=== PATIENT | male | born 1965 | race Hispanic/Latino ===

== ENCOUNTER 2016-04-04 08:11 | Emergency (ER) | payer BC ==
[2016-04-04 08:21] VITALS: BP 149/92
[2016-04-04] MEDS ORDERED: DIPHTH,PERTUSS(ACELL),TET VAC 0.5 ML VIAL IM ONE ×2 (08:47→08:51)
--- NOTE | 2016-04-04 08:49 | ERNOTE ---
Medical Problem HPI - Narrative Date of Service: 04/04/16 - General Chief Complaint: Laceration Time Seen by Provider: 04/04/16 08:43 Source: patient - Immun/Allergies/Home Medications Immunizations: IMMUNIZATION HX Immunizations Up to Date Yes History of Influenza Vaccine No Hx Pneumococcal Vaccination No Allergies/Adverse Reactions: Allergies No Known Allergies Allergy (Verified 04/04/16 08:20) Home Medications: HOME MEDICATIONS NK [No Home Medication] 03/13/16 [Last Taken Unknown] - History of Present History Narrative: Pt incurred a superficial finger laceration on a knife at home. Timing: constant Severity: mild Review of Systems - Review of Systems Constitutional: Present: See HPI EYE: Present: no symptoms reported ENT: Present: no symptoms reported Respiratory: Present: no symptoms reported Cardiology: Present: no symptoms reported Gastrointestinal/Abdominal: Present: no symptoms reported Genitourinary: Present: no symptoms reported Musculoskeletal: Present: See HPI Skin: Present: no symptoms reported Neurological: Present: no symptoms reported Endocrine: Present: no symptoms reported Hematologic/Lymphatic: Present: no symptoms reported Psych: Present: no symptoms reported - Patient's Past Medical History Patient History - Medical: No pertinent hx Patient History - Cardiac/Respiratory: Hypertension Patient History - Cancer: No Hx of Cancer Patient History - Surgical Procedures: Other - Family History Mother Family History - Cardiac/Respiratory: Hypertension Father Family History - Medical: History Unknown Family History - Cardiac/Respiratory: History Unknown - Social History Living Situations: home Smoking Status: Never smoker Have you smoked in the past 12 months: No Alcohol Use: none Drug Use: none Physical Exam - Physical Exam General Appearance: Present: wd/wn, alert, no apparent distress Eye Exam: Normal inspection: bilateral, PERRL: bilateral Ears, Nose, Throat: Present: normal ENT inspection, hearing grossly normal, normal pharynx Neck: Present: normal inspection, nontender Respiratory: Present: no respiratory distress, normal breath sounds, no accessory muscle use, chest nontender, lungs clear Cardiovascular/Chest: Present: regular rate, rhythm, no murmur, normal peripheral pulses Gastrointestinal/Abdominal: Present: normal bowel sounds, nontender, nondistended, soft, no organomegaly Rectal Exam: Present: deferred Back Exam: Present: normal inspection, normal range of motion Extremity Exam: Present: non-tender, no edema, normal range of motion, other - 1 cm superficial index finger laceration on the left hand Neurological Exam: Present: alert, oriented, normal mood/affect Skin Exam: Present: normal color, warm/dry Lymphatic Exam: Present: no adenopathy ED Progress - Vital Signs Patient's Vital Signs:: I have reviewed the patient's vital signs. Vital Signs: Vital Signs 04/04/16 08:18 Temperature 36.8 C Pulse Rate 95 Respiratory 12 Rate Blood Pressure 149/92 O2 Sat by Pulse 96 Oximetry - Progress/Reassessment Chief Complaint: Laceration Progress:: Improved - Transfer of Care Expected Disposition: Discharge Procedures Left Finger 2nd Digit Wound's Depth/Shape: superficial Wound Explored: clean Wound Intervention: irrigated w/saline Distal NVT: neuro/vasc intact Wound Repaired With: Dermabond Wound Dressing: sterile dressing applied, splint applied Complications: Pt jacquelyn procedure well Departure - Departure Clinical Impression: Finger laceration Disposition: Home self-care Condition: Good Instructions: Laceration Care, Adult, [id number] Referrals: Edgar Ramirez MD [Primary Care Provider] -
== END 2016-04-04 09:10 | disposition home or self-care (01) ==
LOC: ER 08:11
PROC: 0HQGXZZ Repair Left Hand Skin, External Approach (ICD-10-PCS; principal; 2016-04-04)
DX: S61.211A Laceration without foreign body of left index finger without damage to nail, initial encounter (principal); W26.0XXA Contact with knife, initial encounter; Y92.009 Unspecified place in unspecified non-institutional (private) residence as the place of occurrence of the external cause; Z23 Encounter for immunization

== ENCOUNTER 2016-06-10 13:43 | Emergency (ER) | payer BC ==
[2016-06-10 13:59] VITALS: BP 146/84
--- OUTSIDE RECORDS SUMMARY | 2016-06-10 14:12 | XMS REPORT | Continuity of Care Document ---
:1965 Author Organization [facility] ([facility]) Address [address] [place] [address] Phone [phone] Care Team Providers Name Role Phone Unavailable Primary Care Provider Unavailable Source Comments This disclosure is being made pursuant to the Care Everywhere program, applicable federal and state laws, and may not contain all informaitonavailable regarding this patient.[facility] ([facility]) Active Allergies and Adverse Reactions Not on File Current Medications Not on file Active Problems Not on file Social History Tobacco Use Types Packs/Day Years Used Date Never Assessed Plan of Care Health Maintenance Due Date Last Done Comments HCV Screening 1965 Hepatitis B Vaccine (1 of 3 - Primary Series) 1965 Tdap Vaccine 1975 Lipid Disorder Screening 1982 MMR Vaccine 1982 Td Vaccine 1982 Colonoscopy 2014 Prostate Cancer Screening 2014 Influenza Vaccine: Seasonal (#1) 10/25/2015 Results from Last 3 Months Not on file
--- NOTE | 2016-06-10 14:59 | ERNOTE ---
Integumentary HPI - Narrative Date of Service: 06/10/16 - General Presenting Symptoms: rash Time Seen by Provider: 06/10/16 13:55 Source: patient Exam Limitations: no limitations - Immun/Allergies/Home Medications Immunizations: IMMUNIZATION HX Immunizations Up to Date Yes History of Influenza Vaccine No Hx Pneumococcal Vaccination No Allergies/Adverse Reactions: Allergies Allergy/AdvReac Type Severity Reaction Status Date / Time No Known Allergies Allergy Verified 06/10/16 13:59 Home Medications: HOME MEDICATIONS Cetirizine HCl [Zyrtec] 10 mg PO DAILY #30 cap 06/10/16 [Last Taken Unknown] diphenhydrAMINE HCL [Benadryl] 50 mg PO HS #30 capsule 06/10/16 [Last Taken Unknown] - Pain Pain Score: 0 - History of Present Illness Narrative: 51 year old male who presents to ED via POV with complaints of bumps to head, right forearm, chest and right lateral chest wall area. Patient states bumps itch, denies pain or purulent drainage. States noticed them late last night. Denies fevers, chills or body aches. Denies pets in house or change in food or detergent. States no other family members are affected. Has not tried anything OTC for this or previous treatment Date (Duration): 06/09/16 Location: Reports: scalp, upper extremity, other - sternal chest area and right lateral chest wall Quality: Reports: itching. Denies: painful, burning Severity: mild Exposure: Reports: no cause identified Modifying Factors - (Improves): Reports: nothing Modifying Factors - (Worsens): Reports: other Associated Symptoms: Denies: blisters, rash, hives, petechiae, edema, fever, headache, nasal congestion, sore throat, malaise Review of Systems - Review of Systems Constitutional: Present: no symptoms reported. Absent: recent illness, fever, chills, diaphoresis, weakness, fatigue EYE: Absent: no symptoms reported, eye discharge ENT: Absent: ear pain, ear discharge, nose pain, nose congestion, nasal drainage , sore throat Respiratory: Absent: shortness of breath, cough Cardiology: Absent: chest pain Gastrointestinal/Abdominal: Absent: nausea, vomiting, diarrhea, abdominal pain Genitourinary: Present: no symptoms reported Musculoskeletal: Present: no symptoms reported Skin: Present: other - raised bumps without drainage Neurological: Present: no symptoms reported Endocrine: Present: no symptoms reported Hematologic/Lymphatic: Present: no symptoms reported Psych: Present: no symptoms reported - Patient's Past Medical History Patient History - Medical: No pertinent hx Patient History - Cardiac/Respiratory: No pertinent hx Patient History - Cancer: No Hx of Cancer Patient History - Surgical Procedures: Other Patient History - Other: None - Family History Mother Family History - Cardiac/Respiratory: Hypertension Father Family History - Medical: History Unknown Family History - Cardiac/Respiratory: History Unknown - Social History Living Situations: home Abuse History: No History of abuse Psych History: No pertinent hx Smoking Status: Never smoker Alcohol Use: none Drug Use: none - Immunizations Immunizations Up to Date: Yes Hx Pneumococcal Vaccination: No History of Influenza Vaccine: No Physical Exam - Physical Exam General Appearance: Present: wd/wn, alert, no apparent distress Eye Exam: Normal inspection: bilateral, PERRL: bilateral Ears, Nose, Throat: Present: normal ENT inspection, normal pharynx. Absent: nasal congestion, sinus pain/drainage, pharyngeal erythema, pharyngeal swelling , tonsillar exudate Neck: Present: normal inspection, nontender, full range of motion. Absent: lymphadenopathy (R), lymphadenopathy (L) Respiratory: Present: no respiratory distress, normal breath sounds, no accessory muscle use, chest nontender, lungs clear. Absent: crackles, rales, rhonchi, stridor, wheezing Cardiovascular/Chest: Present: regular rate, rhythm, no murmur, normal peripheral pulses Peripheral Pulses: N=norm/S=strong/W=weak/B=bound/A=absent: Radial (R): Normal, Radial (L): Normal Gastrointestinal/Abdominal: Present: normal bowel sounds, nontender, nondistended, soft, no organomegaly Rectal Exam: Present: deferred Male Genitals Exam: Present: deferred Back Exam: Present: normal inspection, normal range of motion, no CVA tenderness , no vertebral tenderness Extremity Exam: Present: normal inspection, non-tender, normal range of motion, no edema Neurological Exam: Present: alert, oriented, normal mood/affect, no motor/ sensory deficits Skin Exam: Present: normal color, warm/dry Lymphatic Exam: Present: no adenopathy ED Progress - Vital Signs Patient's Vital Signs:: I have reviewed the patient's vital signs. Vital Signs: Vital Signs 06/10/16 13:54 Temperature 37.0 C Pulse Rate 90 Respiratory 16 Rate Blood Pressure 146/84 O2 Sat by Pulse 95 Oximetry - Progress/Reassessment Chief Complaint: Rash Progress:: Re-examined Departure Clinical Impression: Dermatitis - Departure Disposition: Home Follow Up Needed Condition: Good Instructions: Contact Dermatitis Additional Instructions: Take Zyrtec as prescribed during day and Benadryl at night to help with itching. No alcohol, sedatives or narcotics with Benadryl. No driving or operating heavy machinery with Benadryl. Follow up with physician if symptoms do not improve Referrals: Edgar Ramirez MD [Primary Care Provider] - Prescriptions: Cetirizine HCl [Zyrtec] 10 mg PO DAILY #30 cap diphenhydrAMINE HCL [Benadryl] 50 mg PO HS #30 capsule
== END 2016-06-10 15:05 | disposition home or self-care (01) ==
LOC: ER 13:43
DX: L30.9 Dermatitis, unspecified (principal)

== ENCOUNTER 2017-02-19 23:57 | Emergency (ER) | payer BC ==
[2017-02-20] MEDS ORDERED: ONDANSETRON HCL/PF 2 MG/ML VIAL IV ONE (00:28)
[2017-02-20] MEDS ORDERED: NORMAL SALINE 1,000 ML IV ONE (00:28)
--- NOTE | 2017-02-20 00:34 | ERNOTE ---
Medical Problem HPI - General Chief Complaint: Flu Symptoms Time Seen by Provider: 02/20/17 00:22 Source: patient Exam Limitations: no limitations - Immun/Allergies/Home Medications Immunizations: IMMUNIZATION HX Immunizations Up to Date Yes History of Influenza Vaccine No Hx Pneumococcal Vaccination No Allergies/Adverse Reactions: Allergies No Known Allergies Allergy (Verified 06/10/16 13:59) Home Medications: HOME MEDICATIONS Cetirizine HCl [Zyrtec] 10 mg PO DAILY #30 cap 06/10/16 [Last Taken Unknown] diphenhydrAMINE HCL [Benadryl] 50 mg PO HS #30 capsule 06/10/16 [Last Taken Unknown] Ondansetron [Zofran Odt] 4 mg PO Q6H PRN #10 tab 02/20/17 [Last Taken Unknown] - History of Present History Narrative: N/V/D x 12 hours. Timing: getting worse Severity: moderate, severe Modifying Factors - (Worsens): Present: eating Review of Systems - Review of Systems Constitutional: Absent: recent illness EYE: Present: no symptoms reported ENT: Present: no symptoms reported Respiratory: Absent: shortness of breath Cardiology: Absent: chest pain Gastrointestinal/Abdominal: Present: See HPI, eating less, drinking less Genitourinary: Present: no symptoms reported Musculoskeletal: Present: muscle pain, muscle stiffness Skin: Absent: rash Neurological: Present: no symptoms reported Endocrine: Present: no symptoms reported Hematologic/Lymphatic: Present: no symptoms reported Psych: Present: no symptoms reported - Patient's Past Medical History Patient History - Medical: No pertinent hx Patient History - Cardiac/Respiratory: No pertinent hx Patient History - Cancer: No Hx of Cancer Patient History - Surgical Procedures: Other Patient History - Other: None - Family History Mother Family History - Cardiac/Respiratory: Hypertension Father Family History - Medical: History Unknown Family History - Cardiac/Respiratory: History Unknown - Social History Living Situations: other Abuse History: No History of abuse Psych History: No pertinent hx Smoking Status: Never smoker Have you smoked in the past 12 months: No Do you dip or chew tobacco: No Patient requests Smoking Cessation Consult: No Initiate information on Smoking Cessation: No Alcohol Use: none Drug Use: none - Immunizations Immunizations Up to Date: Yes Hx Pneumococcal Vaccination: No History of Influenza Vaccine: No Physical Exam - Physical Exam General Appearance: Present: wd/wn, alert, moderate distress, lethargic - generally weak Head Exam: Present: normal inspection, no evidence of injury Respiratory: Present: no respiratory distress, no accessory muscle use, lungs clear Cardiovascular/Chest: Present: no murmur, tachycardia Gastrointestinal/Abdominal: Present: abnormal bowel sounds - hyperactive. Absent: distended, guarding, rebound Back Exam: Present: normal inspection, normal range of motion Extremity Exam: Present: normal inspection, normal range of motion, no edema Neurological Exam: Present: alert, oriented, normal mood/affect, no motor/ sensory deficits Skin Exam: Present: normal color, warm/dry Lymphatic Exam: Present: no adenopathy ED Progress - Results and Orders Patient's Lab Results:: I have reviewed the patient's lab results. Results and Orders: Laboratory Tests 02/20/17 02/20/17 02/20/17 00:11 00:40 00:40 WBC 15.3 H Hgb 17.1 Hct 48.8 Plt Count 221 Neutrophils % 93.4 H Sodium 140 Potassium 3.7 D Chloride 105 Carbon Dioxide 22.4 L Anion Gap 16.3 H BUN 23 Creatinine 0.91 Random Glucose 146 H Total Bilirubin 1.0 AST 25 ALT 33 Alkaline Phosphatase 95 Total Protein 8.3 H Albumin 4.1 Amylase 50 Lipase 83 Urine Color Urine Appearance Urine pH Ur Specific [place] Urine Protein Urine Glucose (UA) Urine Ketones Urine Blood Urine Nitrate Urine Bilirubin Prot Sulfosalicylic Acd Urine Urobilinogen Ur Leukocyte Esterase Urine RBC Urine WBC Ur Epithelial Cells Urine Bacteria Urine Mucus Urine Culture Comments Influenza Type A Ag Negative Influenza Type B Ag Negative 02/20/17 00:40 WBC Hgb Hct Plt Count Neutrophils % Sodium Potassium Chloride Carbon Dioxide Anion Gap BUN Creatinine Random Glucose Total Bilirubin AST ALT Alkaline Phosphatase Total Protein Albumin Amylase Lipase Urine Color Dark yellow Urine Appearance Clear Urine pH 6.0 Ur Specific [place] >=1.030 Urine Protein 30 H Urine Glucose (UA) Negative Urine Ketones Negative Urine Blood Negative Urine Nitrate Negative Urine Bilirubin Negative Prot Sulfosalicylic Acd Negative Urine Urobilinogen Normal Ur Leukocyte Esterase Negative Urine RBC None seen Urine WBC None seen Ur Epithelial Cells 0-5 Urine Bacteria 1+ H Urine Mucus Moderate - 2+ H Urine Culture Comments No culture indicated Influenza Type A Ag Influenza Type B Ag - Vital Signs Patient's Vital Signs:: I have reviewed the patient's vital signs. Vital Signs: Vital Signs 02/20/17 00:03 Temperature 36.9 C Pulse Rate 134 H Respiratory 18 Rate Blood Pressure 128/82 - X-Ray X-Ray #1 X-Ray: abdomen Interpretation: Interp. by me X-ray Comments: dilated loops of small bowel, some a/f levels on upright - CT/Ultrasound CT/Ultrasound Narrative: dilated small bowel without transition point suggesting enterocolitis. colon fluid filled. appendix normal diverticuli without diverticulitis small fat containing umbilical hernia small bilateral fat containing inguinal hernias - Progress/Reassessment Chief Complaint: Flu Symptoms Progress:: Improved - nausea better Progress Note-Subjective: 02/20/17 01:24 spoke with the patient about CT and contrast. Pt agrees with plan Departure Clinical Impression: Gastroenteritis and colitis, viral - Departure Disposition: Home self-care Condition: Fair Instructions: Viral Gastroenteritis, Adult, [id number] Referrals: Edgar Ramirez MD [Primary Care Provider] - Prescriptions: Ondansetron [Zofran Odt] 4 mg PO Q6H PRN #10 tab PRN Reason: Nausea
[2017-02-20 00:43] LABS: Hematocrit 48.8 % (42.0-52.0); Hemoglobin 17.1 gm/dL (13.5-18.0); Mean Cell Volume 89.5 fl (78-100); Mean Corpuscular Hemoglobin 31.4 pg (27-31); Mean Platelet Volume 9.7 fl (6.0-9.5); Neutrophil # 14.3 K/mm3 (1.3-6.0); Neutrophil % 93.4 % (42-75.0); Platelet Count 221 K/mm3 (150-450); Red Blood Count 5.45 M/mm3 (4.7-6.0); Red Cell Distribution Width 12.3 % (11.5-14.0); White Blood Count 15.3 K/mm3 (4.0-10.5)
[2017-02-20 00:46] LABS: Urine Bilirubin Negative (NEGATIVE); Urine Blood Negative /ul (NEGATIVE); Urine Ketone Negative (NEGATIVE); Urine Nitrite Negative (NEGATIVE); Urine Protein 30 mg/dL (NEGATIVE); Urine Specific Gravity >=1.030 SP.GR. (1.005-1.030); Urine Urobilinogen Normal (NORMAL)
[2017-02-20] MEDS ORDERED: ONDANSETRON HCL/PF 2 MG/ML VIAL ONE (00:49)
[2017-02-20 00:55] LABS: Urine Appearance Clear; Urine Bacteria 1+; Urine Color Dark Yellow; Urine Mucus Moderate - 2+; Urine RBC None Seen /hpf (0-5); Urine WBC None Seen /hpf (0-5)
[2017-02-20 00:59] LABS: Albumin * 4.1 gm/dl (3.4-5.0); Anion Gap 16.3 mmol/L (6.8-13.8); BUN/Creatinine Ratio 25.3 (9.0-21.6); Ca. Corrected For Albumin 8.4 mg/dL (8.4-10.2); Calcium * 8.8 mg/dL (7.9-10.9); Carbon Dioxide 22.4 mmol/L (24-32.6); Potassium 3.7 mmol/L (3.4-4.6); Total Protein 8.3 gm/dL (6.2-8.2)
[2017-02-20] MEDS ORDERED: DIATRIZOATE MEGLUMINE, SODIUM 30 ML BTL PO ONE (01:19)
[2017-02-20] MEDS ORDERED: DIATRIZOATE MEGLUMINE, SODIUM 30 ML BTL ONE (01:20)
[2017-02-20 04:06] VITALS: BP 121/72
[2017-02-20] MEDS ORDERED: ONDANSETRON 4 MG TAB.RAPDIS ONE (04:18)
[2017-02-20] MEDS: ONDANSETRON 4 MG TAB.RAPDIS PO ONE ×3 (04:20→04:24)
== END 2017-02-20 04:25 | disposition home or self-care (01) ==
LOC: ER 23:57
DX: A08.4 Viral intestinal infection, unspecified (principal)
CPT/HCPCS: 36415; 74020; 74177; 80053; 81001; 82150; 83690; 85025; 87400; 96374; 99285; J2405